=== PATIENT | male | born 1940 | race Caucasian/White ===

== ENCOUNTER → 2016-06-22 | Outpatient (CLI) | payer OTHER ==
[~2016-06-22] MED LIST: ASPI-232 PO; HYDR12.55 PO; LOSA1TAB38 PO; OMEP20TA PO; amoxicillin PO
[2016-06-22 14:01] LABS: BLOOD UREA NITROGEN 14 mg/dl (7-18); BUN/CREATININE RATIO 14.3 (10-20); CARBON DIOXIDE 31 mmol/L (21-32); CHLORIDE 105 mmol/L (98-107); CHOLESTEROL 211 mg/dl (0-200); GLUCOSE 100 mg/dl (70-99); POTASSIUM 4.1 mmol/L (3.5-5.1); SODIUM 140 mmol/L (136-145); TRIGLYCERIDES 74 mg/dl (0-150); VERY LOW DENSITY LIPOPROT CALC 15 mg/dl
[2016-06-22 14:02] LABS: CALCIUM 9.3 mg/dl (8.5-10.1)
[2016-06-22 14:06] LABS: CHOLESTEROL/HDL RATIO 3.2; HDL CHOLESTEROL 65 mg/dl; PROSTATE SPECIFIC ANTIGEN 0.011 ng/ml (0.000-4.000)
== END | disposition home or self-care (01) ==
LOC: C.LABSPEC 12:13
PROVIDERS: ATTEND Internal Medicine
DX: Z00.00 Encounter for general adult medical examination without abnormal findings (principal); I10 Essential (primary) hypertension; E78.5 Hyperlipidemia, unspecified; Z85.46 Personal history of malignant neoplasm of prostate

== ENCOUNTER → 2017-06-21 | Outpatient (CLI) | payer OTHER ==
[2017-06-21 12:48] LABS: BASO % 0.7 %; BASO ABS # 0.05 K/uL (0-0.2); EOS % 3.8 %; EOS ABS # 0.28 K/uL (0-0.5); HEMATOCRIT 43.5 % (42-52); HEMOGLOBIN 14.9 g/dL (14.0-18.0); LYMPH % 38.1 %; LYMPH ABS # 2.81 K/uL (1.2-3.4); MEAN CELL VOLUME 92.2 fL (80-100); MEAN CORPUSCULAR HEMOGLOBIN 31.6 pg (25-34); MEAN CORPUSCULAR HGB CONC 34.3 g/dl (32-36); MEAN PLATELET VOLUME 10.8 fL (7.4-10.4); MONO % 7.5 %; MONO ABS # 0.55 K/uL (0.11-0.59); NEUT % 49.9 %; NEUT ABS # 3.69 K/uL (1.4-6.5); PLATELET COUNT 262 K/uL (130-400); RED CELL DISTRIBUTION WIDTH CV 12.5 % (11.5-14.5); RED CELL DISTRIBUTION WIDTH SD 42.2 fL (36.4-46.3); WHITE BLOOD COUNT 7.38 K/uL (4.8-10.8)
[2017-06-21 12:54] LABS: ALBUMIN 3.9 gm/dl (3.4-5.0); ALT/SGPT 26 U/L (12-78); AST/SGOT 23 U/L (15-37); BLOOD UREA NITROGEN 15 mg/dl (7-18); CALCIUM 8.7 mg/dl (8.5-10.1); CARBON DIOXIDE 27 mmol/L (21-32); CHOLESTEROL 195 mg/dl (0-200); CREATININE 1.06 mg/dl (0.60-1.40); GLUCOSE 97 mg/dl (70-99); SODIUM 139 mmol/L (136-145)
[2017-06-21 12:58] LABS: ALKALINE PHOSPHATASE 63 U/L (45-117); LDL CHOLESTEROL (DIRECT) 127 mg/dl; TOTAL PROTEIN 6.9 gm/dl (6.4-8.2)
== END | disposition home or self-care (01) ==
LOC: C.LABSPEC 12:10
PROVIDERS: ATTEND Internal Medicine
DX: C61 Malignant neoplasm of prostate (principal); E78.5 Hyperlipidemia, unspecified; I10 Essential (primary) hypertension